=== PATIENT | male | born 2000 | race Caucasian/White ===

== ENCOUNTER 2021-12-08 19:09 | Emergency (ER) | payer OTHER | END 2021-12-08 21:20 | disposition home or self-care (01) | LOC: FER 19:09 | DX: S60.221A Contusion of right hand, initial encounter (principal); W22.8XXA Striking against or struck by other objects, initial encounter; Y92.009 Unspecified place in unspecified non-institutional (private) residence as the place of occurrence of the external cause; Z28.310 Unvaccinated for COVID-19 | CPT/HCPCS: 73110; 73130 ==